=== PATIENT | female | born 1970 | race African-American/Black ===

== ENCOUNTER 2022-10-07 07:00 | Day surgery (SDC) | payer OTHER ==
[2022-09-29 10:43] VITALS: BMI 38.6
[2022-10-07] MEDS ORDERED: PROPOFOL 40 ML ONE (07:08)
[2022-10-07] MEDS ORDERED: MIDAZOLAM HCL 2 MG/2 ML SINGLE DOSE VIAL ONE ×3 (07:09→09:34)
[2022-10-07] MEDS ORDERED: EPINEPHrine 1:1,000 1,000 MCG/ML ML ONE (07:14)
[2022-10-07] MEDS ORDERED: BUPIVACAINE HCL/EPINEPHRINE/PF 30 ML VIAL IJ ONE (07:31)
[2022-10-07] MEDS ORDERED: BUPIVACAINE HCL/PF 0.5% (5 MG/ML) 30 ML VIAL IJ ONE (07:51)
[2022-10-07] MEDS ORDERED: DEXAMETHASONE SOD PHOSPHATE/PF 10 MG/ML SDV ONE (07:51)
[2022-10-07] MEDS ORDERED: BUPIVACAINE HCL/PF 0.5% (5MG/ML) 10 ML VIAL ONE (09:00)
[2022-10-07] MEDS ORDERED: IBUPROFEN 400 MG TABLET (FP) PO PRN (09:13)
[2022-10-07] MEDS ORDERED: ACETAMINOPHEN 325 MG TABLET (FP) PO PRN (09:13)
[2022-10-07] MEDS ORDERED: oxyCODONE HCL 5 MG TABLET PO PRN (09:14)
[2022-10-07] MEDS ORDERED: PROPOFOL 20 ML ONE ×3 (09:28→10:32)
[2022-10-07] MEDS ORDERED: SUCCINYLCHOLINE CHLORIDE 200 MG/10 ML SYRINGE ONE (09:56)
[2022-10-07] MEDS ORDERED: ONDANSETRON 4 MG/2 ML VIAL IVPUSH PRN (11:43)
[2022-10-07] MEDS ORDERED: LACTATED RINGERS SOLUTION 1,000 ML IV SCH (11:45)
[2022-10-07 13:42] VITALS: RESP 16; TEMP 97.6
[2022-10-07] MEDS ORDERED: ONDANSETRON *ODT* 4 MG TABLET ONE (14:00)
[2022-10-07] MEDS ORDERED: ONDANSETRON *ODT* 4 MG TABLET SL ONE (14:00)
[2022-10-07 14:17] VITALS: BP 149/85; PULSE 88
== END 2022-10-07 14:15 | disposition home or self-care (01) ==
LOC: FASU 07:00
PROVIDERS: ATTEND Orthopaedic Surgery
PROC: 0LS34ZZ Reposition Right Upper Arm Tendon, Percutaneous Endoscopic Approach (ICD-10-PCS; principal; 2022-10-07 10:00)
PROC: 0RNJ4ZZ Release Right Shoulder Joint, Percutaneous Endoscopic Approach (ICD-10-PCS; 2022-10-07 10:00)
DX: S46.011D Strain of muscle(s) and tendon(s) of the rotator cuff of right shoulder, subsequent encounter (principal); M75.21 Bicipital tendinitis, right shoulder; M75.51 Bursitis of right shoulder; M65.811 Other synovitis and tenosynovitis, right shoulder; S43.431D Superior glenoid labrum lesion of right shoulder, subsequent encounter; M75.01 Adhesive capsulitis of right shoulder
CPT/HCPCS: 81025; 88304-TC; 94760; C1713; Q0162

== ENCOUNTER 2024-02-13 15:54 | Day surgery (SDC) | payer OTHER ==
[2024-02-12 08:56] VITALS: BMI 38.6
[2024-02-13] MEDS: LIDOCAINE 1%/EPI 1:100000 (20 ML MULTI DOSE VIAL) IJ ONE ×2 (12:53→14:25)
[2024-02-13] MEDS: ceFAZolin SODIUM 1 GM VIAL IVPB ONE ×2 (12:55→14:15)
[2024-02-13] MEDS: GENTAMICIN SO4 80 MG/2 ML VIAL IVPB ONE ×3 (12:55→15:15)
[2024-02-13] MEDS: VANCOMYCIN 1 GM in NS (PRE-DOCKED) 1,000 MG/250 ML (RESTRICTED TO ID ONLY) IVPB ONE ×2 (12:55→13:35)
[2024-02-13] MEDS: HYDROGEN PEROXIDE 473 ML PO ONE ×2 (12:56→15:15)
[~2024-02-13 15:54] MED LIST: ACETAMINOPHEN INJECTION 100 ML ONE; DEXAMETHASONE SOD PHOSPHATE 4 MG/1 ML VIAL ONE; GENTAMICIN SO4 80 MG/2 ML VIAL ONE; GLYCOPYRROLATE 0.2 MG/1 ML VIAL ONE; HYDROmorphone HCl 2 MG/ML VIAL ONE; KETAMINE HCL 200 MG/20 ML VIAL ONE; LIDOCAINE 1%/EPI 1:100000 (20 ML MULTI DOSE VIAL) ONE; LIDOCAINE HCL/PF 2% SDV 5ML VIAL ONE; MAGNESIUM SULF 50% (8.12 MEQ/2 ML-1 GM VIAL) ONE; MIDAZOLAM HCL 2 MG/2 ML SINGLE DOSE VIAL ONE; ONDANSETRON 4 MG/2 ML VIAL IVPUSH PRN; ONDANSETRON 4 MG/2 ML VIAL ONE; PROPOFOL 20 ML ONE; ROCURONIUM BROMIDE 50 MG/5 ML SYRINGE ONE; SODIUM CHLORIDE 0.9% P/F 10 ML VIAL IJ ONE; SUCCINYLCHOLINE CHLORIDE 200 MG/10 ML SYRINGE ONE; TRANEXAMIC ACID 1000 MG/10 ML VIAL ONE; VANCOMYCIN 1,000 MG VIAL (RESTRICTED TO ID ONLY) ONE; ceFAZolin SODIUM 1 GM VIAL ONE; diphenhydrAMINE HCL 25 MG CAPSULE (FP) PO PRN; oxyCODONE HCL 5 MG TABLET PO PRN
[2024-02-13] MEDS ORDERED: GLYCOPYRROLATE 0.2 MG/1 ML VIAL ONE ×2 (15:55)
[2024-02-13] MEDS ORDERED: NEOSTIGMINE METHYLSULFATE 0.5 MG/1 ML - 10 ML MDV ONE (15:55)
[2024-02-13] MEDS ORDERED: SUGAMMADEX SODIUM 200 MG/2 ML VIAL ONE (16:03)
[2024-02-13] MEDS: LACTATED RINGERS SOLUTION 1,000 ML IV SCH (16:10)
[2024-02-13] MEDS: HEPARIN NA (PORCINE) 5,000 UNITS/ML 1ML VIAL SQ SCH (16:39)
[2024-02-13] MEDS ORDERED: CEFAZOLIN 1 GM/D5W 1 GM/50 ML BAG IVPB SCH ×2 (18:00→22:00)
[2024-02-13] MEDS ORDERED: DOCUSATE SODIUM 100 MG CAPSULE (FP) PO SCH (22:00)
[2024-02-14 06:46] VITALS: RESP 18
[2024-02-14] MEDS: ACETAMINOPHEN 325 MG TABLET (FP) PO ONE (08:11)
[2024-02-14 08:40] LABS: HEMATOCRIT 38.8 % (32.4-45.2); MCH 28.1 pg (25.7-33.7); MCHC 33.4 g/dl (32.0-36.0); MEAN CELL VOLUME 83.9 fl (80-96); MEAN PLT VOLUME 8.1 fl (7.5-11.1); PLATELET COUNT 333 10^3/uL (134-434); POTASSIUM 4.5 mmol/L (3.5-5.1); RBC 4.62 M/mm3 (3.60-5.2); WHITE BLOOD COUNT 13.6 K/mm3 (4.0-10.0)
[2024-02-14 08:48] LABS: ALBUMIN 3.2 g/dl (3.4-5.0); BLOOD UREA NITROGEN 8.9 mg/dL (7-18)
[2024-02-14 08:49] LABS: CALCIUM 9.2 mg/dL (8.5-10.1)
[2024-02-14 08:51] LABS: BILIRUBIN,TOTAL 0.3 mg/dL (0.2-1); MAGNESIUM 2.5 mg/dL (1.8-2.4); TOT PROT 7.5 g/dl (6.4-8.2)
[2024-02-14 08:52] LABS: CREATININE 0.7 mg/dL (0.55-1.3); PHOSPHOROUS 2.6 mg/dL (2.5-4.9)
[2024-02-14] MEDS ORDERED: FERROUS SO4 325 MG TABLET (FP) PO SCH (10:00)
[2024-02-14] MEDS ORDERED: FOLIC ACID 1 MG TABLET (FP) PO SCH (10:00)
[2024-02-14] MEDS: LACTATED RINGERS SOLUTION 1,000 ML/1,000 ML INFUS.BAG IV SCH (10:16)
[2024-02-14 13:53] VITALS: BP 155/74; PULSE 88; TEMP 98.4
== END 2024-02-14 15:00 | disposition home or self-care (01) ==
LOC: JASUSAT 15:54 → SUATTDRO 15:54 → J8W 18:45 → JASUSAT 02-14 15:00
PROVIDERS: ATTEND Nurse Practitioner Acute Care
PROC: 0PB30ZZ Excision of Cervical Vertebra, Open Approach (ICD-10-PCS; principal; 2024-02-13 13:00)
DX: M47.12 Other spondylosis with myelopathy, cervical region (principal); M40.12 Other secondary kyphosis, cervical region
CPT/HCPCS: 36415; 72125-TC; 76000-TC-FY; 80053; 83735; 84100; 85027; 86850; 86900; 86901; 94010; 94760; 97116-GP; 97161-GP; C1713; J0131